=== PATIENT | male | born 1950 | race Caucasian/White ===

== ENCOUNTER → 2016-04-03 | Outpatient (CLI) | payer BC ==
[~2016-04-03] MED LIST: CALC1TAB25 PO
[2016-04-03 10:58] LABS: BASO % 1.3 %; BASO ABS # 0.07 K/uL (0-0.2); COMPLETE YES; EOS % 5.8 %; IG% 0.6 %; LYMPH % 33.7 %; LYMPH ABS # 1.75 K/uL (1.2-3.4); MEAN CELL VOLUME 89.6 fL (80-100); MEAN CORPUSCULAR HEMOGLOBIN 31.6 pg (25-34); MEAN CORPUSCULAR HGB CONC 35.3 g/dl (32-36); MEAN PLATELET VOLUME 8.8 fL (7.4-10.4); MONO % 9.6 %; PLATELET COUNT 263 K/uL (130-400); RED BLOOD COUNT 4.24 M/uL (4.7-6.1); WHITE BLOOD COUNT 5.19 K/uL (4.8-10.8)
[2016-04-03 11:26] LABS: ALT/SGPT 44 U/L (12-78); AST/SGOT 27 U/L (15-37); BLOOD UREA NITROGEN 14 mg/dl (7-18); BUN/CREATININE RATIO 18.9 (10-20); CALCIUM 8.9 mg/dl (8.5-10.1); CARBON DIOXIDE 27 mmol/L (21-32); CHLORIDE 107 mmol/L (98-107); CHOLESTEROL 159 mg/dl (0-200); CREATININE 0.76 mg/dl (0.60-1.40); GLUCOSE 86 mg/dl (70-99); POTASSIUM 3.9 mmol/L (3.5-5.1); SODIUM 143 mmol/L (136-145); TRIGLYCERIDES 66 mg/dl (0-150); VERY LOW DENSITY LIPOPROT CALC 13 mg/dl
[2016-04-03 11:27] LABS: CHOLESTEROL/HDL RATIO 3.1; HDL CHOLESTEROL 52 mg/dl; LDL CHOLESTEROL CALCULATED 94 mg/dl
== END | disposition home or self-care (01) ==
LOC: C.LAB1850 09:30
PROVIDERS: ATTEND Internal Medicine
DX: I10 Essential (primary) hypertension (principal); E78.00 Pure hypercholesterolemia, unspecified; D72.819 Decreased white blood cell count, unspecified

== ENCOUNTER → 2016-05-04 | Outpatient (CLI) | payer BC | END | disposition home or self-care (01) | LOC: C.PATHSPEC 14:07 | PROVIDERS: ATTEND Dermatology | DX: L57.0 Actinic keratosis (principal) ==

== ENCOUNTER → 2016-06-07 | Outpatient (CLI) | payer BC | END | disposition home or self-care (01) | LOC: C.PATHSPEC 13:30 | PROVIDERS: ATTEND Dermatology | DX: L82.0 Inflamed seborrheic keratosis (principal) ==

== ENCOUNTER → 2016-08-22 | Outpatient (CLI) | payer BC | END | disposition home or self-care (01) | LOC: C.PATHSPEC 16:32 | PROVIDERS: ATTEND Dermatology | DX: D23.9 Other benign neoplasm of skin, unspecified (principal); L82.1 Other seborrheic keratosis ==

== ENCOUNTER → 2016-08-31 | Outpatient (CLI) | payer BC ==
[2016-08-31 15:39] LABS: CALCIUM 9.4 mg/dl (8.5-10.1)
[2016-08-31 15:50] LABS: ALT/SGPT 29 U/L (12-78); AST/SGOT 20 U/L (15-37); BLOOD UREA NITROGEN 13 mg/dl (7-18); BUN/CREATININE RATIO 16.5 (10-20); CARBON DIOXIDE 28 mmol/L (21-32); CHLORIDE 105 mmol/L (98-107); CREATININE 0.78 mg/dl (0.60-1.40); GLUCOSE 83 mg/dl (70-99); POTASSIUM 3.6 mmol/L (3.5-5.1); SODIUM 141 mmol/L (136-145)
[2016-08-31 16:00] LABS: ALB/GLOB RATIO 1.1 (0.9-2); ALKALINE PHOSPHATASE 43 U/L (45-117)
== END | disposition home or self-care (01) ==
LOC: C.LAB1850 13:12
PROVIDERS: ATTEND Physician Assistant Medical
DX: I10 Essential (primary) hypertension (principal); Z12.5 Encounter for screening for malignant neoplasm of prostate

== ENCOUNTER → 2017-06-29 | Outpatient (CLI) | payer BC ==
[~2017-06-29] MED LIST changes: +ASPEC81 PO; +ASPI325T4 PO; +FERR1TAB23 PO; +HYDR25TA4 PO; +IRBE1TAB50 PO; +METO25TA3 PO; +PLV75 PO; +ROSU5TAB PO; +VTMD400 PO
[2017-06-29 12:23] LABS: BASO % 1.1 %; BASO ABS # 0.06 K/uL (0-0.2); EOS % 14.9 %; EOS ABS # 0.82 K/uL (0-0.5); HEMATOCRIT 37.1 % (42-52); IG# 0.01 K/uL (0.00-0.02); LYMPH % 25.9 %; LYMPH ABS # 1.42 K/uL (1.2-3.4); MEAN CELL VOLUME 90.9 fL (80-100); MEAN CORPUSCULAR HEMOGLOBIN 31.9 pg (25-34); MEAN PLATELET VOLUME 8.7 fL (7.4-10.4); MONO % 11.8 %; MONO ABS # 0.65 K/uL (0.11-0.59); NEUT % 46.1 %; NEUT ABS # 2.53 K/uL (1.4-6.5); PLATELET COUNT 296 K/uL (130-400); RED CELL DISTRIBUTION WIDTH CV 12.8 % (11.5-14.5); RED CELL DISTRIBUTION WIDTH SD 42.5 fL (36.4-46.3); WHITE BLOOD COUNT 5.49 K/uL (4.8-10.8)
[2017-06-29 12:35] LABS: ALBUMIN 3.8 gm/dl (3.4-5.0); ALT/SGPT 31 U/L (12-78); AST/SGOT 20 U/L (15-37); BLOOD UREA NITROGEN 18 mg/dl (7-18); CALCIUM 9.2 mg/dl (8.5-10.1); CARBON DIOXIDE 26 mmol/L (21-32); CREATININE 0.84 mg/dl (0.60-1.40); GLUCOSE 84 mg/dl (70-99); POTASSIUM 3.8 mmol/L (3.5-5.1); SODIUM 139 mmol/L (136-145)
[2017-06-29 12:38] LABS: ALKALINE PHOSPHATASE 42 U/L (45-117); CHOLESTEROL 259 mg/dl (0-200); LDL CHOLESTEROL CALCULATED 203 mg/dl; TOTAL PROTEIN 7.5 gm/dl (6.4-8.2)
== END | disposition home or self-care (01) ==
LOC: C.LABBFT 08:57
PROVIDERS: ATTEND Internal Medicine
DX: E78.00 Pure hypercholesterolemia, unspecified (principal); I10 Essential (primary) hypertension; R79.9 Abnormal finding of blood chemistry, unspecified; D64.9 Anemia, unspecified; D72.819 Decreased white blood cell count, unspecified

== ENCOUNTER → 2017-07-02 | Outpatient (CLI) | payer BC ==
[~2017-07-02] MED LIST changes: -ASPEC81 PO; +ASPI-320 PO
[2017-07-02 17:37] LABS: HEMATOCRIT 38.1 % (42-52); HEMOGLOBIN 13.6 g/dL (14.0-18.0); MEAN CELL VOLUME 90.1 fL (80-100); MEAN CORPUSCULAR HEMOGLOBIN 32.2 pg (25-34); MEAN CORPUSCULAR HGB CONC 35.7 g/dl (32-36); MEAN PLATELET VOLUME 8.5 fL (7.4-10.4); PLATELET COUNT 304 K/uL (130-400); RED CELL DISTRIBUTION WIDTH CV 12.6 % (11.5-14.5); RED CELL DISTRIBUTION WIDTH SD 40.6 fL (36.4-46.3)
[2017-07-02 17:48] LABS: INR 1.1 (0.9-1.1); PTT PATIENT 25.4 SECONDS (21.0-31.0)
[2017-07-02 18:22] LABS: BLOOD UREA NITROGEN 16 mg/dl (7-18); CALCIUM 9.3 mg/dl (8.5-10.1); CARBON DIOXIDE 28 mmol/L (21-32); CREATININE 0.78 mg/dl (0.60-1.40); GLUCOSE 96 mg/dl (70-99); POTASSIUM 3.1 mmol/L (3.5-5.1); SODIUM 138 mmol/L (136-145)
== END | disposition home or self-care (01) ==
LOC: C.LAB1850 16:08
PROVIDERS: ATTEND Internal Medicine Interventional Cardiology
DX: Z01.818 Encounter for other preprocedural examination (principal)

== ENCOUNTER 2017-07-05 07:31 | Inpatient (IN) | payer BC, OTHER ==
[~2017-07-05] VITALS: Ht 177.8 cm; Wt 75.5 kg
[2017-07-05] VITALS (24 sets, daily range): BP systolic 100–143; BP diastolic 66–90; PULSE 63–82; TEMP 36.3–36.6; O2SAT 88–99; Ht 177.8 cm; Wt 75.5 kg
[~2017-07-05 07:31] MED LIST changes: -ASPI-320 PO; -ASPI325T4 PO; -FERR1TAB23 PO; -HYDR25TA4 PO; -IRBE1TAB50 PO; -METO25TA3 PO; -PLV75 PO; -ROSU5TAB PO; -VTMD400 PO
[2017-07-05] MEDS ORDERED: HYDR25TA4 PO (08:05)
[2017-07-05] MEDS ORDERED: FERR1TAB23 PO (08:05)
[2017-07-05] MEDS ORDERED: METO25TA3 PO (08:05)
[2017-07-05] MEDS ORDERED: VTMD400 PO (08:05)
[2017-07-05] MEDS ORDERED: ASPI325T4 PO (08:05)
[2017-07-05] MEDS ORDERED: IRBE1TAB50 PO (08:05)
[2017-07-05] MEDS ORDERED: ROSU5TAB PO (08:05)
[2017-07-05] MEDS ORDERED: NiCARDipine HCL INJ 2.5 MG/ML 10 ML AMP ONE (08:35)
[2017-07-05] MEDS ORDERED: FENTANYL CITRATE INJ 50 MCG/1 ML 2 ML VIAL ONE ×2 (08:35→09:40)
[2017-07-05] MEDS ORDERED: HEPARIN SOD (PORCINE) 1000 UNIT/ML 10 ML VIAL ONE ×2 (08:35→10:08)
[2017-07-05] MEDS ORDERED: MIDAZOLAM HCL 1 MG/ML 2ML VIAL ONE ×2 (08:35→09:41)
[2017-07-05] MEDS ORDERED: NITROGLYCERIN/D5W 100MCG/ML 20ML SYR ONE (08:38)
--- NOTE | 2017-07-05 08:39 | Pre Sedation Assessment ---
Pre Sedation Assessment General Date of Sedation: Jul 05, 2017. Vital Signs Past 12 Hours Date Time Temp Pulse Resp B/P (MAP) Pulse Ox O2 Delivery O2 Flow Rate FiO2 07/05/17 07:54 36.6 80 16 143/90 (107) 99 Room Air Review Cardiovascular: regular rate, rhythm, no edema Lungs: chest non-tender, lungs clear Pre-Sedation Airway Assessment Smoking Status: Never Smoker Hx of Sleep Apnea: No Hx of difficult intubation: No Short Thick Neck: No Thyro-mental Distance: > 3 Finger Breadths Oral Cavity: WNL Mallampati Classification: Class III ASA Classification: Class III NPO Status Date of Last Intake of Fluids: Jul 04, 2017 Time of Last Intake of Fluids: 2199 Date of Last Intake of Solids: Jul 04, 2017 Time of Last Intake of Solids: 2199 Procedure Planning Contraindications for Sedation: None Current Medications Reviewed: Yes Notes The planned sedation has been discussed with the patient. Informed Consent was obtained. I have identified the patient, determined the appropriateness of sedation and have assessed the patient immediately prior to the procedure. All medicine(s) and interventions are by my order.
--- NOTE | 2017-07-05 08:40 | History & Physical Bridge Note ---
H&P Re-Evaluation Bridge Note: I have examined the patient, reviewed the History & Physical and in the interval since the performance of the History & Physical I have noted the following changes of clinical significance: No changes noted
[2017-07-05] MEDS ORDERED: LIDOCAINE HCL 1% 20 ML VIAL ONE (08:47)
[2017-07-05] MEDS ORDERED: ATROPINE SULFATE 0.1 MG/ML 10 ML SYR ONE (10:34)
[2017-07-05] MEDS ORDERED: METOPROLOL TARTRATE 1 MG/ML VIAL ONE (10:36)
[2017-07-05] MEDS ORDERED: EPTIFIBATIDE 0.75 MG/ML 75MG VIAL IV ONE (11:04)
[2017-07-05] MEDS ORDERED: EPTIFIBATIDE 2 MG/ML 10 ML VIAL IV ONE (11:04)
[2017-07-05] MEDS ORDERED: CLOPIDOGREL BISULFATE 300 MG TAB PO ONE (11:16)
--- NOTE | 2017-07-05 11:26 | Post Sedation Assessment ---
Post Sedation Assessment General Date of Sedation Jul 05, 2017. Vital Signs: Vital Signs Past 12 Hours Date Time Temp Pulse Resp B/P (MAP) Pulse Ox O2 Delivery O2 Flow Rate FiO2 07/05/17 11:09 77 16 118/74 (89) 99 Mask 2 07/05/17 07:54 36.6 80 16 143/90 (107) 99 Room Air Post Procedure Recovery Score Activity: (2) Moves 4 extremities * Respiration: (2) Deep breath/cough Circulation: (2) +/-20% PreAnes Value Consciousness: (2) Fully Awake Oxygen Saturation: (1) O2 needed for >90% Post Anesthesia Score: 9 Discharge Sedation Level of Care: Fast Track Phase II Post Sedation Plan On clinical assessment, the patient appears to have tolerated the sedation without complications. Patient is recovering as anticipated. Patient will continue to be monitored by nursing and may be discharged when sedation discharge criteria are met per below protocol. Upon Completions of procedure and additional 15 minutes continue every 5 minute vital signs and the P.A.R. score; then discharge to a Phase I or Fast Track to Phase II per the following guidelines: * Discharge Patient to appropriate Phase II area if PAR is 8 or greater or return to pre- procedure baseline. The post - procedure orders will be as directed. * If PAR score is less than 8 or not return to pre-procedure baseline then patient will follow Phase I monitoring till PAR is reached for Phase II. The Phase I may be done in procedure room or may call to secure a Phase I area. * If naloxone or flumazenil are used for reversal, hold in Phase I for an additional 60 -120 minutes before discharge to Phase II. Please call the Sedation Physician to re-evaluate and complete post-note for discharge to Phase II area. Do NOT discharge from procedure sedation or Phase 1 until post- sedation evaluation note is complete by procedure /sedation MD Sedation Discharge Instructions to be given to the patient at discharge to home.
[2017-07-05] MEDS ORDERED: ONDANSETRON INJ 2 MG/ML 2 ML VIAL IV PRN (11:30)
[2017-07-05] MEDS ORDERED: EPTIFIBATIDE BOLUS / DRIP IV ONE (11:30)
[2017-07-05] MEDS ORDERED: LORAZEPAM INJ 0.5 MG in SYRINGE 0.75 ML IV PRN (11:30)
--- NOTE | 2017-07-05 11:30 | [facility] Post Operative Brief Note ---
Immediate Operative Summary Operative Date Jul 05, 2017. Pre-Operative Diagnosis Typical Angina Post-Operative Diagnosis Coronary artery disease Procedure(s) Performed Cardiac catheterization PCI to LAD (2.75 x 33 Xience post-dilated with 3.5 NC balloon) Surgeon David Personal Property Assessor Surgeon(s) Glunt Estimated Blood Loss 15 Findings Consistent with Post-Op Diagnosis Specimens None Drains None Anesthesia Type IV Sedat Cons RN Only Complication(s) Bradycarida to Asystole requiring chest compressions, atropine x1, epinephrine. Quick ROSC with post epi-tachycardia and hypertension requiring metoprolol Post procedure Good angiographic result. Preserved LV function on echo, no pericardial effusion. Residual chest pain likely secondary to vessel stretching, pinched septal branch and chest compressions. Disposition Accompanied Pt To Recover: no Disposition: Surgical ICU
[2017-07-05] MEDS ORDERED: SODIUM CHLORIDE 0.9% 1000ML 750 ML IV SCH (12:33)
[2017-07-05] MEDS ORDERED: LORAZEPAM 2 MG/ML 1 ML VIAL IV PRN (12:45)
[2017-07-05] MEDS ORDERED: EPTIFIBATIDE INJ 75 MG PREMIXED IV SCH (12:45)
[2017-07-05] MEDS: ACETAMINOPHEN 325 MG TAB PO PRN ×2 (14:58→20:30)
[2017-07-05] MEDS ORDERED: Integrelin infusion --> STOP ORDER ONE (16:00)
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
--- NOTE | 2017-07-05 17:31 | ECHOCARDIOGRAM REPORT ---
*NOTICE TO RECEIVING DEMOCRAT AGENCY This information is strictly Confidential and protected under [place] law. [place] law prohibits you from making any further disclosure of this information unless further disclosure is expressly permitted by the written consent of the person to whom it pertains or is authorized by law. A general authorization for the release of medical or other information is not sufficient for this purpose. Hospital accepts no responsibility if the information is made available to any other person, INCLUDING THE PATIENT. Interpretation Summary * Name: MANUEL MUÑIZ Study Date: 07/05/2017 11:00 AM BP: 118/74 mmHg * Patient Location: [facility] HR: 77 * : 1950 (M/d/yyyy) Gender: Male Height: 70 in * Age: 66 yrs Ethnicity: CA Weight: 165 lb * Performed By: Evelyn Williamson RDCS * * Reason For Study: LIMITED FOR LV FUNCTION * BSA: 1.9 m2 * Patient done on cath table, limited for LV function, quick echo pictures, no definity at this time as per Dr. Hernandez * -- Conclusions -- * 1. Normal left ventricular size. Grossly low-normal systolic function. Estimated EF 50-55%.No visualized regional wall motion abnormalities. Cannot exclude wall motion abnormalities given image quality. No left ventricular hypertrophy. * 2. Limited 2D echo imaging as per request. * 3. Technically difficult study with poor to fair image quality of the apical views. * 4. No prior study available for comparison. Procedure Details * LIMITED FOR LV FUNCTION Left Ventricle * Normal left ventricular size. Grossly low-normal systolic function. Estimated EF 50-55%.No visualized regional wall motion abnormalities. Cannot exclude wall motion abnormalities given image quality. No left ventricular hypertrophy. Right Ventricle * The right ventricle is grossly normal size. * Grossly normal right ventricular systolic function. Atria * The left atrial size is normal. * Right atrial size is normal. Mitral Valve * The mitral valve is grossly normal. Tricuspid Valve * The tricuspid valve is not well visualized, but is grossly normal. Aortic Valve * The aortic valve is not well visualized. Pulmonic Valve * The pulmonic valve is not well visualized. Great Vessels * The aortic root is normal size. Pericardium/Pleural * There is no pericardial effusion. Great Vessels * IVC not visualized. MMode 2D Measurements and Calculations IVSd 1.0 cm IVSs 1.3 cm LVIDd 4.5 cm LVIDs 3.3 cm LVPWd 1.1 cm LVPWs 1.8 cm IVS/LVPW 0.92 FS 26.9 % EDV(Teich) 90.4 ml ESV(Teich) 42.8 ml EF(Teich) 52.6 % EDV(cubed) 88.5 ml ESV(cubed) 34.6 ml EF(cubed) 60.9 % % IVS thick 24.9 % % LVPW thick 56.1 % LV mass(C)d 170.3 grams LV mass(C)dI 88.6 grams/m\S\2 LV mass(C)s 183.6 grams LV mass(C)sI 95.5 grams/m\S\2 SV(Teich) 47.6 ml SI(Teich) 24.7 ml/m\S\2 SV(cubed) 53.9 ml SI(cubed) 28.0 ml/m\S\2 Ao root diam 3.3 cm Ao root area 8.7 cm\S\2
[2017-07-05] MEDS: OXYCODONE HCL IR 5 MG TAB (IMMEDIATE RELEASE) PO PRN ×2 (17:38→21:46)
[2017-07-05] MEDS: METOPROLOL TARTRATE 25 MG TAB PO SCH (20:30)
[2017-07-06] VITALS (20 sets, daily range): BP systolic 113–139; BP diastolic 66–79; PULSE 62–101; TEMP 36.5–37; O2SAT 94–99
[2017-07-06 05:03] LABS: BASO % 0.5 %; BASO ABS # 0.04 K/uL (0-0.2); EOS % 2.6 %; EOS ABS # 0.22 K/uL (0-0.5); HEMATOCRIT 33.6 % (42-52); IG# 0.02 K/uL (0.00-0.02); LYMPH ABS # 1.86 K/uL (1.2-3.4); MEAN CELL VOLUME 88.4 fL (80-100); MEAN CORPUSCULAR HEMOGLOBIN 31.6 pg (25-34); MEAN CORPUSCULAR HGB CONC 35.7 g/dl (32-36); MEAN PLATELET VOLUME 8.1 fL (7.4-10.4); MONO % 9.9 %; MONO ABS # 0.84 K/uL (0.11-0.59); NEUT % 64.8 %; NEUT ABS # 5.49 K/uL (1.4-6.5); PLATELET COUNT 232 K/uL (130-400); RED CELL DISTRIBUTION WIDTH CV 12.2 % (11.5-14.5); RED CELL DISTRIBUTION WIDTH SD 39.1 fL (36.4-46.3); WHITE BLOOD COUNT 8.47 K/uL (4.8-10.8)
[2017-07-06 05:21] LABS: CALCIUM 8.6 mg/dl (8.5-10.1); CREATININE 0.86 mg/dl (0.60-1.40)
[2017-07-06 05:39] LABS: CKMB 52.9 ng/ml (0.5-3.6)
[2017-07-06] MEDS: ACETAMINOPHEN 325 MG TAB PO PRN ×2 (06:14→19:36)
[2017-07-06] MEDS: ASPIRIN 81 MG ECTAB PO SCH (08:02)
[2017-07-06] MEDS: METOPROLOL TARTRATE 25 MG TAB PO SCH ×2 (08:02→20:50)
[2017-07-06] MEDS: ROSUVASTATIN CALCIUM 10 MG TAB PO SCH (08:03)
[2017-07-06] MEDS: CLOPIDOGREL BISULFATE 75 MG TAB PO SCH (08:03)
[2017-07-06] MEDS: IRBESARTAN 150 MG TAB PO SCH (08:04)
[2017-07-06] MEDS: FERROUS SULFATE 325 MG TAB PO SCH (08:04)
[2017-07-06] MEDS ORDERED: POTASSIUM CHLORIDE 20 MEQ TABCR PO ONE (09:15)
--- NOTE | 2017-07-06 10:07 | Cardiology Follow-Up ---
Subjective Subjective Date of Service: Jul 06, 2017. Pt evaluation today including: conversation w/ patient, physical exam, chart review, lab review, review of studies, review of inpatient medication list Additional Details: Feeling well. Minimal residual chest wall pain. No shortness of breath. No wrist pain. Telemetry reviewed -- no events. Review of Systems Constitutional: No fever Respiratory: No cough, No sputum Cardiac: + chest pain Abdomen: No pain, No nausea Heme: No abnormal bleeding/bruising Skin: No rash Objective Vital Signs Last Vital Signs Documentation Date Time Temp Pulse Resp B/P (MAP) Pulse Ox O2 Delivery O2 Flow Rate FiO2 07/06/17 08:01 36.9 78 14 128/70 (89) 98 07/06/17 08:00 Room Air 07/05/17 11:40 2.0 Physical Exam: General Appearance: no apparent distress ENT: normal ENT inspection Neck: supple, no JVD Respiratory/Chest: lungs clear, normal breath sounds, + pertinent finding ( chest wall tender) Cardiovascular: regular rate, rhythm, no edema Abdomen: normal bowel sounds, non tender Extremities: no pedal edema, + pertinent finding (right radial artery-no access site hematoma/ecchymosis; intact pulse) Neurologic/Psychiatric: alert, normal mood/affect Skin: warm/dry Assessment and Plan 1. Coronary artery disease -- post PCI with [place] to LAD 2. Intraprocedure PEA cardiac arrest -- no recurrent arrhythmias 3. Elevated troponin 4. Hypokalemia 5. Hypertension 6. Anemia Patient looks and feels well this morning. Hemodynamically and electrically stable. Chest wall pain better controlled. No recurrent anginal symptoms Troponin elevated but not unexpected. -- OK for transfer to telemetry today. -- Up walking around halls today. -- Continue aspirin/Plavix -- Continue current ARB/beta-kylie, statin Tentative plan for discharge tomorrow. Medications: Current Inpatient Medications Medications (Trade) Dose Ordered Sig/Alize Route Start Time Stop Time Status Last Admin Dose Admin Ondansetron HCl (Zofran Inj) 4 mg Q6H PRN IV 07/05/17 11:30 08/04/17 11:29 Aspirin (Ecotrin Tab) 81 mg QAM PO 07/06/17 09:00 08/05/17 08:59 07/06/17 08:02 81 MG Clopidogrel Bisulfate (plAVix TAB) 75 mg QAM PO 07/06/17 09:00 08/05/17 08:59 07/06/17 08:03 75 MG Metoprolol Tartrate (Lopressor Tab) 12.5 mg Q12 PO 07/05/17 21:00 08/04/17 20:59 07/06/17 08:02 12.5 MG Acetaminophen (Tylenol Tab) 650 mg Q4H PRN PO 07/05/17 11:30 08/04/17 11:29 07/06/17 06:14 650 MG Lorazepam 0.5 mg/ Syringe 1 ml @ 1 mls/min Q6H PRN IV 07/05/17 11:30 08/04/17 11:29 Rosuvastatin Calcium (Crestor Tab) 5 mg DAILY PO 07/06/17 09:00 08/05/17 08:59 07/06/17 08:03 5 MG Ferrous Sulfate (Feosol Tab) 325 mg DAILY PO 07/06/17 09:00 08/05/17 08:59 07/06/17 08:04 325 MG Irbesartan (Avapro Tab) 300 mg DAILY PO 07/06/17 09:00 08/05/17 08:59 07/06/17 08:04 300 MG Lorazepam (Ativan Inj) 0.5 mg Q6H PRN IV 07/05/17 12:45 08/04/17 12:44 Oxycodone HCl (Roxicodone Immediate Rel Tab) 5 mg Q4 PRN PO 07/05/17 17:15 07/19/17 17:14 07/05/17 21:46 5 MG Lab Results: 07/06/17 04:46 Red Blood Count 3.80, Mean Corpuscular Volume 88.4, Mean Corpuscular Hemoglobin 31.6, Mean Corpuscular Hemoglobin Concent 35.7, Mean Platelet Volume 8.1, Neutrophils (%) (Auto) 64.8, Lymphocytes (%) (Auto) 22.0, Monocytes (%) (Auto) 9.9, Eosinophils (%) (Auto) 2.6, Basophils (%) (Auto) 0.5, Neutrophils # (Auto) 5.49, Lymphocytes # (Auto) 1.86, Monocytes # (Auto) 0.84, Eosinophils # (Auto) 0.22, Basophils # (Auto) 0.04 07/06/17 04:46 Test 07/05/17 10:18 07/05/17 23:32 07/06/17 04:46 Kaolin Activated Coagulation Time 279 SECONDS (94-140) Bedside Glucose 107 mg/dl (70-99) White Blood Count 8.47 K/uL (4.8-10.8) Red Blood Count 3.80 M/uL (4.7-6.1) Hemoglobin 12.0 g/dL (14.0-18.0) Hematocrit 33.6 % (42-52) Mean Corpuscular Volume 88.4 fL (80-100) Mean Corpuscular Hemoglobin 31.6 pg (25-34) Mean Corpuscular Hemoglobin Concent 35.7 g/dl (32-36) Platelet Count 232 K/uL (130-400) Mean Platelet Volume 8.1 fL (7.4-10.4) Neutrophils (%) (Auto) 64.8 % Lymphocytes (%) (Auto) 22.0 % Monocytes (%) (Auto) 9.9 % Eosinophils (%) (Auto) 2.6 % Basophils (%) (Auto) 0.5 % Neutrophils # (Auto) 5.49 K/uL (1.4-6.5) Lymphocytes # (Auto) 1.86 K/uL (1.2-3.4) Monocytes # (Auto) 0.84 K/uL (0.11-0.59) Eosinophils # (Auto) 0.22 K/uL (0-0.5) Basophils # (Auto) 0.04 K/uL (0-0.2) RDW Standard Deviation 39.1 fL (36.4-46.3) RDW Coefficient of Variation 12.2 % (11.5-14.5) Immature Granulocyte % (Auto) 0.2 % Immature Granulocyte # (Auto) 0.02 K/uL (0.00-0.02) Anion Gap 7.0 mmol/L (3-11) Est Creatinine Clear Calc Drug Dose 86.1 ml/min Estimated GFR () 104.0 Estimated GFR (Non- 89.7 BUN/Creatinine Ratio 16.2 (10-20) Calcium Level 8.6 mg/dl (8.5-10.1) Phosphorus Level 3.0 mg/dl (2.5-4.9) Magnesium Level 2.0 mg/dl (1.8-2.4) Total Creatine Kinase 391 U/L (39-308) Creatine Kinase MB 52.9 ng/ml (0.5-3.6) Creatine Kinase MB Ratio 13.5 (0-3.0) Troponin I 9.620 ng/ml (0-0.045) Date/Time Source Procedure Growth Status 07/05/17 11:30 Nasal MRSA DNA Surveillance Screen - Final Specimen Negative for MRSA by DNA Probe Complete
--- NOTE | 2017-07-06 11:17 | Critical Care Progress Note ---
Critical Care Progress Note Date of Service Jul 06, 2017. Attending Dr. Rogel Subjective No events overnight, the patient continued to have sternal chest pain and likely pleuritic chest pain from chest compression, the patient did have coronary artery disease status post stent to the LAD yesterday, bradycardia to asystole with good recovery after CPR and 1 dose of atropine. The patient is currently asymptomatic other than the above, he is ambulatory and tolerating oral intake without any difficulties. No dizziness and he did not have any near syncopal episode. Objective Physical exam of 07/06/2017 showed S1-S2, regular rate and rhythm, distant and clear breath sounds, abdomen is benign, no edema. Neurologically he is intact. Labs are consistent with troponin positive, expected post cath. Assessment & Plan 1. Coronary artery disease status post CAROLINA to LAD. 2. Near syncopal episode related to above. 3. Brief cardiac arrest secondary to bradycardia, recovered with quick CPR and atropine. 4. Hypercholesterolemia. 5. Chest pain secondary to chest compression. Plan: 1. Cardiac management per Dr. Hernandez. Appreciate his input. 2. Continue with Tylenol. 3. The patient required 2 doses of oxycodone and he is not in agonal pain at this point. 4. Tolerated physical therapy and walking around the unit. 5. Oral intake. 6. Disposition plan per Dr. Hernandez. Thank you. Data Medications: Current Inpatient Medications Medications (Trade) Dose Ordered Sig/Alize Route Start Time Stop Time Status Last Admin Dose Admin Ondansetron HCl (Zofran Inj) 4 mg Q6H PRN IV 07/05/17 11:30 08/04/17 11:29 Aspirin (Ecotrin Tab) 81 mg QAM PO 07/06/17 09:00 08/05/17 08:59 07/06/17 08:02 81 MG Clopidogrel Bisulfate (plAVix TAB) 75 mg QAM PO 07/06/17 09:00 08/05/17 08:59 07/06/17 08:03 75 MG Metoprolol Tartrate (Lopressor Tab) 12.5 mg Q12 PO 07/05/17 21:00 08/04/17 20:59 07/06/17 08:02 12.5 MG Acetaminophen (Tylenol Tab) 650 mg Q4H PRN PO 07/05/17 11:30 08/04/17 11:29 07/06/17 06:14 650 MG Lorazepam 0.5 mg/ Syringe 1 ml @ 1 mls/min Q6H PRN IV 07/05/17 11:30 08/04/17 11:29 Rosuvastatin Calcium (Crestor Tab) 5 mg DAILY PO 07/06/17 09:00 08/05/17 08:59 07/06/17 08:03 5 MG Ferrous Sulfate (Feosol Tab) 325 mg DAILY PO 07/06/17 09:00 08/05/17 08:59 07/06/17 08:04 325 MG Irbesartan (Avapro Tab) 300 mg DAILY PO 07/06/17 09:00 08/05/17 08:59 07/06/17 08:04 300 MG Lorazepam (Ativan Inj) 0.5 mg Q6H PRN IV 07/05/17 12:45 08/04/17 12:44 Oxycodone HCl (Roxicodone Immediate Rel Tab) 5 mg Q4 PRN PO 07/05/17 17:15 07/19/17 17:14 07/05/17 21:46 5 MG Vital Signs: Date Time Temp Pulse Resp B/P (MAP) Pulse Ox O2 Delivery O2 Flow Rate FiO2 07/06/17 08:01 36.9 78 14 128/70 (89) 98 07/06/17 08:00 73 17 96 07/06/17 08:00 Room Air 07/06/17 07:01 62 16 120/73 (89) 96 07/06/17 07:00 62 21 94 07/06/17 06:00 36.8 64 20 125/71 (89) 96 Room Air 07/06/17 04:03 36.8 76 18 127/71 (89) 95 Room Air 07/06/17 04:03 Room Air 07/06/17 02:03 36.8 65 16 113/71 (85) 94 Room Air 07/06/17 00:01 36.8 63 18 115/66 (82) 95 Room Air 07/06/17 00:01 Room Air 07/05/17 22:00 65 20 126/78 (94) 96 Room Air 07/05/17 20:00 36.6 67 18 122/66 (84) 97 Room Air 07/05/17 20:00 Room Air 07/05/17 18:00 69 20 121/74 (90) 97 Room Air 07/05/17 17:21 68 20 134/83 (100) 98 Room Air 07/05/17 16:21 63 18 119/71 (87) 96 Room Air 07/05/17 16:00 36.4 63 18 119/71 (87) 97 Room Air 07/05/17 16:00 Room Air 07/05/17 16:00 36.4 63 18 119/71 (87) 96 Room Air 07/05/17 15:21 36.4 63 18 113/67 (82) 96 Room Air 07/05/17 14:30 64 24 07/05/17 14:16 66 20 112/66 (81) 95 07/05/17 14:01 63 20 122/71 (88) 96 07/05/17 14:00 65 20 95 07/05/17 13:46 69 24 118/77 (91) 96 07/05/17 13:31 68 22 114/78 (90) 99 07/05/17 13:30 68 24 07/05/17 13:30 Room Air 07/05/17 13:25 71 20 114/78 (90) 99 Room Air 07/05/17 12:55 72 21 111/78 (89) 98 Room Air 07/05/17 12:25 81 25 120/85 (97) 97 Room Air 07/05/17 12:10 82 17 101/74 (83) 97 Room Air 07/05/17 12:00 Room Air 07/05/17 12:00 36.3 74 18 100/68 97 Room Air 07/05/17 11:55 74 18 100/68 (79) 97 Room Air 07/05/17 11:40 76 16 114/75 (88) 97 Nasal Cannula 2.0 07/05/17 11:25 36.3 74 15 107/73 (84) 99 Nasal Cannula 2.0 07/05/17 11:24 74 16 125/77 (93) 99 Mask 2 Laboratory Results: Last 24 Hours Test 07/05/17 11:56 07/05/17 15:43 07/05/17 23:32 07/06/17 04:46 Bedside Glucose 94 mg/dl 85 mg/dl 107 mg/dl White Blood Count 8.47 K/uL Red Blood Count 3.80 M/uL Hemoglobin 12.0 g/dL Hematocrit 33.6 % Mean Corpuscular Volume 88.4 fL Mean Corpuscular Hemoglobin 31.6 pg Mean Corpuscular Hemoglobin Concent 35.7 g/dl Platelet Count 232 K/uL Mean Platelet Volume 8.1 fL Neutrophils (%) (Auto) 64.8 % Lymphocytes (%) (Auto) 22.0 % Monocytes (%) (Auto) 9.9 % Eosinophils (%) (Auto) 2.6 % Basophils (%) (Auto) 0.5 % Neutrophils # (Auto) 5.49 K/uL Lymphocytes # (Auto) 1.86 K/uL Monocytes # (Auto) 0.84 K/uL Eosinophils # (Auto) 0.22 K/uL Basophils # (Auto) 0.04 K/uL RDW Standard Deviation 39.1 fL RDW Coefficient of Variation 12.2 % Immature Granulocyte % (Auto) 0.2 % Immature Granulocyte # (Auto) 0.02 K/uL Sodium Level 135 mmol/L Potassium Level 3.0 mmol/L Chloride Level 100 mmol/L Carbon Dioxide Level 28 mmol/L Anion Gap 7.0 mmol/L Blood Urea Nitrogen 14 mg/dl Creatinine 0.86 mg/dl Est Creatinine Clear Calc Drug Dose 86.1 ml/min Estimated GFR () 104.0 Estimated GFR (Non- 89.7 BUN/Creatinine Ratio 16.2 Random Glucose 112 mg/dl Calcium Level 8.6 mg/dl Phosphorus Level 3.0 mg/dl Magnesium Level 2.0 mg/dl Total Creatine Kinase 391 U/L Creatine Kinase MB 52.9 ng/ml Creatine Kinase MB Ratio 13.5 Troponin I 9.620 ng/ml
[2017-07-07 00:37] VITALS: BP 125/72; PULSE 67; TEMP 36.9; O2SAT 97
[2017-07-07 04:00] VITALS: BP 117/60; PULSE 77; TEMP 37.2; O2SAT 97
--- NOTE | 2017-07-07 05:32 | Progress Note ---
Post ICU Progress Note Date & Time Jul 07, 2017 at 05:29 Vital Signs Vital Signs Past 12 Hours Date Time Temp Pulse Resp B/P (MAP) Pulse Ox O2 Delivery O2 Flow Rate FiO2 07/07/17 04:00 Room Air 07/07/17 04:00 37.2 77 16 117/60 (79) 97 Room Air 07/07/17 00:37 36.9 67 16 125/72 (89) 97 Room Air 07/06/17 23:59 Room Air 07/06/17 20:00 99 Room Air 07/06/17 19:43 36.5 101 18 139/79 (99) 99 Room Air 07/06/17 17:30 37.0 73 16 132/73 (92) 98 Nasal Cannula Notes Mental Status: see Notes Nausea / Vomiting: adequately controlled Pain: adequately controlled Airway Patency, RR, SpO2: stable & adequate BP & HR: stable & adequate Patient is a 66-year-old male who underwent routine cardiac catheterization for decrease in exercise tolerance and positive stress test. During procedure, the patient was found to have stenosis of the LAD requiring intervention. During procedure, the patient did have bradycardia resulting in asystolic arrest requiring brief compressions with a one-time dose of atropine which did resolve his dysrhythmia. He received a CAROLINA to the LAD and was subsequently transferred to the ICU for close monitoring. Throughout his stay, the patient had no ectopy or issues with blood pressure otherwise. He did have complaints of central chest pain at the location of compressions. This did seem to improve with oral pain medication alone. Patient is sleeping and resting comfortably at the time of evaluation. I did not choose to wait the patient at this time. Consider outpatient follow up in 1 to 2 weeks with: Cardiology, PCP Repeat imaging needed: None at this time. Follow up cultures: N/A Reviewed progress notes, labs, and inpatient medication list Continue current management Additional recommendations: None at this time. Thank you for allowing us to participate in the care of this patient. At this time, Critical Care services will sign off on this case. Please feel free to reconsult if we can be of any further assistance.
[2017-07-07 06:25] LABS: BASO ABS # 0.08 K/uL (0-0.2); EOS % 6.4 %; EOS ABS # 0.52 K/uL (0-0.5); HEMATOCRIT 34.1 % (42-52); IG# 0.02 K/uL (0.00-0.02); LYMPH % 22.4 %; LYMPH ABS # 1.83 K/uL (1.2-3.4); MEAN CELL VOLUME 90.5 fL (80-100); MEAN CORPUSCULAR HEMOGLOBIN 31.8 pg (25-34); MEAN CORPUSCULAR HGB CONC 35.2 g/dl (32-36); MEAN PLATELET VOLUME 8.2 fL (7.4-10.4); MONO ABS # 0.98 K/uL (0.11-0.59); NEUT ABS # 4.74 K/uL (1.4-6.5); PLATELET COUNT 227 K/uL (130-400); RED CELL DISTRIBUTION WIDTH CV 12.6 % (11.5-14.5); RED CELL DISTRIBUTION WIDTH SD 41.3 fL (36.4-46.3); WHITE BLOOD COUNT 8.17 K/uL (4.8-10.8)
[2017-07-07 07:06] LABS: CALCIUM 8.7 mg/dl (8.5-10.1); CREATININE 0.84 mg/dl (0.60-1.40); POTASSIUM 4.1 mmol/L (3.5-5.1)
[2017-07-07] MEDS: FERROUS SULFATE 325 MG TAB PO SCH (07:33)
[2017-07-07] MEDS: ACETAMINOPHEN 325 MG TAB PO PRN (07:33)
[2017-07-07] MEDS: IRBESARTAN 150 MG TAB PO SCH (07:33)
[2017-07-07] MEDS: METOPROLOL TARTRATE 25 MG TAB PO SCH (07:33)
[2017-07-07] MEDS: CLOPIDOGREL BISULFATE 75 MG TAB PO SCH (07:34)
[2017-07-07] MEDS: ASPIRIN 81 MG ECTAB PO SCH (07:34)
[2017-07-07] MEDS: ROSUVASTATIN CALCIUM 10 MG TAB PO SCH (07:34)
[2017-07-07 07:53] VITALS: BP 131/73; PULSE 73; TEMP 37; O2SAT 97
[2017-07-07] MEDS ORDERED: PLV75 PO (10:29)
[2017-07-07] MEDS ORDERED: ASPI-320 PO (10:29)
--- NOTE | 2017-07-07 10:32 | Discharge Instructions ---
Discharge Instructions Procedure Procedure Date: Jul 07, 2017. Reason for Visit: Chest Pain *Dr Hernandez To Do*. Discharge Discharge Date: Jul 07, 2017. Discharge Diagnosis: Coronary artery disease post stenting Last Recorded Wt (Kilograms): 75.500 Instructions Activity Recommendations: limitations as noted below Recommended Home Diet: low sodium, low cholesterol Allergies: Coded Allergies: Atorvastatin (Verified Allergy, Mild, Body Aches, No Energy, 07/05/17) Simvastatin (Verified Allergy, Mild, Body Aches, No Energy, 07/05/17) Follow Up Additional Instructions: ACTIVITY RECOMMENDATIONS: It is common to feel weak and fatigue for a few days. * Do not drive or operate any motorized equipment for the next 2 days. * Limit stair usage (2 or 3 trips a day only) for the next three days. * Do not lift anything heavier than 10 pounds for the next three days. * Do not engage in vigorous exercise or any sports for the next five days. Excess manipulation of the wrist should be avoided for the next 24-48 hours. * No lifting over 2 pounds (approximately a 1/2 gallon of milk) with the utilized arm for 24 hours. * No strenuous activity such as bowling or tennis for 3 days. * Keep the site of the procedure covered with a bandage for 24 hours. *You may shower the day after the procedure. Do not take a tub bath or submerge the puncture site in water for the next 3 days. SPECIAL CARE INSTRUCTIONS: The site may be slightly bruised and sore following your procedure. Should any of the following occur, contact the Dr. who performed your procedure. 1. Redness/inflammation, swelling, chills, or fever, or colored drainage at procedure site within 3-7 days after your procedure. 2. Coldness, discoloration, ongoing numbness, severe pain, or swelling. Expect mild tingling of hand and tenderness at the puncture site for up to three days. If this persists beyond three days, or other symptoms develop, notify the Dr. who performed your procedure. BLEEDING: If the procedure site on your wrist begins to bleed, do not panic 1. Place 1 or 2 fingers firmly just slightly above the insertion site to stop the bleeding. You may be able to feel your pulse as you hold pressure. 2. Lift your finger after 5 minutes to see if the bleeding has stopped. 3. Once the bleeding has stopped, gently wipe the wrist area clean with a bandage. * If the bleeding from your wrist does not stop after 10 minutes, or if there is a large amount of bleeding or spurting, call 911 (do not drive yourself to the hospital). SKIN IRRITATION: * You may experience some redness and/or swelling in the area where radiation was administered. If any skin irritation occurs, please contact your family physician. FOLLOW UP VISIT: Keep any scheduled doctor appointments. Follow-up with: 2-[address] David Sanders Recommendations: Call your doctor if: * Temperature above 101 degrees * Pain not relieved by pain medicine ordered * There is increased drainage or redness from any incision * You have any unanswered questions or concerns. Your Doctors Instructions noted above were prepared by provider Frankie Hernandez. Patient Signature Section: Patient Instructions Signature Page Thanh Miller Patient (or Guardian) Signature/Date: I have read and understand the instructions given to me by my caregivers. Caregiver/RN/Doctor Signature/Date: The above-named patient and/or guardian has received patient instructions on this date. + Original Patient Signature Page (only) stays with chart. Please make copy for patient.
[2017-07-07 10:41] VITALS: BP 131/73; PULSE 73; TEMP 37; O2SAT 97
--- NOTE | 2017-07-07 15:33 | Cardiac Catheterization ---
Procedure Note Procedure Date Jul 05, 2017. Pre-Procedure Diagnosis Angina AUC Score 7 Post-Procedure Diagnosis Severe CAD, Successful PCI, Normal Intracardiac Pressures Procedure(s) Performed Coronary Angiography, Left Heart Cath, Drug Eluting Stent, IVUS Final Inspector And Tester David [employer] Area Network Systems Administrator(s) Glunt Estimated Blood Loss 15 Medication(s) Atropine, Clopidogrel, Epinephrine, Fentanyl, Heparin, Integrilin, Metoprolol, Versed, Lidocaine 1% Summary of Findings Indication: Accelerating typical angina Access: 6Fr right radial artery Catheters: [place], JR4; EBU 3.5 Findings: LM - Angiographically normal LAD - Moderate caliber vessel, 80-90% diffuse calcified disease from proximal to mid segments; distal vessel tortuous with diffuse mild disease to apex. - Moderate caliber 2nd diagonal with 30% ostial stenosis. Circumflex - Large, dominant, luminal irregularities RCA - Small, non-dominant, angiographically normal LVEDP - 11 -- PCI -- Antithrombotic therapy: Heparin, clopidogrel, Integrilin Procedure: Left main cannulated with EBU 3 5 guide BMW wire passed across lesion into distal vessel Proximal to mid LAD lesion predilated with 2.5 compliant balloon IVUS catheter used to assess extent LAD disease distal to takeoff of diagonal and for vessel sizing--found to have severe disease almost from LAD ostium to be on 2nd diagonal with moderate calcification Whisper wire placed into moderate caliber 2nd diagonal Ostium of 2nd diagonal dilated with 2.0 balloon Dilated LAD lesion stented with 2.75 x 33 millimeters Xience drug-eluting stent Attempted to dilate diagonal ostium/stent struts with 2.0 and 1.5 balloons but unable to pass balloon into vessel Stent post-dilated with 3.5 noncompliant balloon. With balloon inflation noted to have compromise of moderate caliber septal branch. After receiving IC nicardipine, Versed/fentanyl patient became increasingly bradycardic and eventually became asystolic Chest compressions started, received IV atropine and epinephrine with quick ROSC Patient hypertensive, tachycardic following epinephrine with diffuse ST changes and chest pain. Received IV metoprolol x2 Repeat angiography revealed some haziness in the LAD and started on Integrilin IVUS assessment of LAD, circumflex, left main revealed no apparent coronary complications Bedside echocardiogram showed preserved LV function with no regional wall motion abnormalities and no pericardial effusion With additional IC vasodilators noted to have AMARILYS 3 flow, chest pain/ST changes resolved and final coronary angiography revealed no apparent complications Arterial Closure: TR band Summary: 1. Severe single-vessel coronary artery disease - 80-90% diffuse proximal to mid LAD disease 2. Normal intracardiac filling pressure 3. Successful PCI of proximal to mid LAD with single drug-eluting stent (2.75 x 33 millimeter science; post dilated with 3.5 NC) --intraprocedural course complicated by bradycardia/asystole responsive to atropine, epinephrine Recommendations: To ICU for continued monitoring Continue Integrilin for 6 hours Loaded with 600 milligrams clopidogrel in cytogenetics laboratory manager Continue dual-antiplatelet therapy with aspirin/clopidogrel for 1 year Continue statin,and ASCVD risk factor modification Consult cardiac Rehab Hemodynamics Rest Ao: 122/67/92 Final Ao: 92/64/77 LV: 127/11 Recommendations PCI without planned CABG Specimens None Radiation Exposure (mGy) 3453 Contrast (mls) 245 visi Fluids (cc crystalloids) 250 Drains None Anesthesia Moderate Procedural Complication(s) Intraprocedural bradycardia, asystole Disposition ICU ACC Data Cardiac Status Clinical evaluation leading to the procedure CAD Presntation: Unstable angina Anginal Classification: CCS III Heart Failure: No, NYHA Class: CCS I Cardiogenic Shock w/in 24Hrs: No Cardiac Arrest w/in 24Hrs: No Imaging studies past 6 months: Yes Stress studies past 6 months: No Standard Exercise Stress Test: No Stress Echocardiogram: No Stress Testing w/SPECT MPI: No Cardiac CTA: No Closure Device Percutaneous Entry Location: Radial Closure Device: Radial Band Recommendations: PCI without planned CABG PCI Indication: Unstable Angina Lesion Segment Name: Proximal LAD Culprit Artery: Yes Stenosis Prior to Rx (%): 90 Chronic Total Occlusion: No IVUS: Yes FFR: No Pre-Procedure AMARILYS Flow: 3 Previously Treated Lesion: No Lesion Complexity: High/C Lesion Length (mm): 25 Thrombus Present: No Bifurcation Lesion: Yes Guidewire Across Lesion: Yes Guidewire: Stenosis Post-Procedure (%): 0 Post-Procedure AMARILYS Flow: 3 Device(s) Deployed: Yes Intraprocedure Events Significant Dissection: No Perforation: No
--- NOTE | 2017-07-07 15:43 | Discharge Summary ---
Discharge Summary Date of Service Jul 07, 2017. Discharge Summary Admission Date: Jul 05, 2017 at 10:43 Discharge Date: Jul 07, 2017 Discharge Disposition: Home Principal Diagnosis: Coronary artery disease post PCI Problems/Secondary Diagnoses: Intraprocedural asystole/cardiac arrest, hypertension, dyslipidemia Immunizations: Have You Had Influenza Vaccine: Yes History of Tetanus Vaccine?: Yes History of Pneumococcal: No History of Hepatitis B Vaccine: No Procedures: 1. Cardiac catheterization 2. PCI with single drug-eluting stent to proximal to mid LAD Consultations: Braille Coder, Dr. Rogel Medication Reconciliation New Medications: Aspirin (Aspirin EC Low Dose) 81 Mg Ectab 81 MG PO QAM for 30 Days, #30 TAB 9 Refills Clopidogrel Bisulfate (Clopidogrel) 75 Mg Tab 75 MG PO QAM for 90 Days, #90 TAB 3 Refills Continued Medications: Calcium W/ Magnesium (Calcium Magnesium 750) 1 Tab Tab 1 TAB PO QAM Cholecalciferol (Vitamin D3) 400 Inter.unit Tab 1 TAB PO DAILY Ferrous Sulfate (Iron) 325 Mg Tab 1 TAB PO DAILY Irbesartan (Irbesartan) 300 Mg Tab 1 TAB PO DAILY for 30 Days, #30 TAB 5 Refills Metoprolol Succ (Toprol Xl) (Toprol-Xl) 25 Mg Tabcr 25 MG PO DAILY, #30 TAB Rosuvastatin Calcium (Crestor) 5 Mg Tab 1 TAB PO DAILY for 30 Days, #30 TAB 5 Refills Discontinued Medications: Aspirin (Aspirin) 325 Mg Tab 650 MG PO BID, TAB Hydrochlorothiazide (Hctz) 25 Mg Tab 1 TAB PO DAILY for 30 Days, #30 TAB 5 Refills Discharge Exam General: Comfortable, no acute distress Eyes: Sclerae anicteric, extraocular movements intact HENT: Oropharynx clear mucous membranes moist Neck: Normal carotid upstrokes, no bruits. No JVD. Lungs: Clear to auscultation bilaterally, no rhonchi or wheezes Cardiac: Regular rate and rhythm, no murmurs, rubs or gallops. Vascular: 2+ radial, DP and PT pulses. No varicosities. Right radial artery with no ecchymosis, hematoma, pulse intact Abdomen: Soft, nontender, nondistended, positive bowel sounds. Extremities: Well perfused, no peripheral edema Skin: No rashes or lesions. Neuro: Nonfocal Psych: Alert orient x3, normal affect and mood Hospital Course 66-year-old man with history of hypertension, dyslipidemia who was seen as an outpatient earlier this week in the setting new exertional substernal chest pain. Echocardiogram showed preserved LV function. Decision made to proceed directly with cardiac catheterization based on risk factors and typical nature of symptoms. Patient underwent diagnostic coronary angiography via right radial artery. He was found to have a severe 80-90 percent proximal to mid, calcified LAD lesion which was thought to be the likely culprit for his symptoms. PCI undertaken and had a 2.75 x 33 millimeter Xience drug-eluting stent placed to his LAD. Stent was post dilated a 3.5 noncompliant balloon. Following stent dilation patient became increasingly bradycardic eventually asystolic requiring chest compressions, atropine and epinephrine. Had with quick ROSC and not have to be intubated. Repeat coronary angiography, IVUS S min showed no apparent coronary artery complications other than loss of a moderate septal branch. Postprocedure patient was chest pain-free aside from chest wall tenderness. He was admitted to the ICU for monitoring. Repeat echocardiogram showed no change in LV function. He had no significant arrhythmias. He had no recurrent anginal symptoms. On hospital day 3 patient was feeling well, walking laps around the hospital without any symptoms and was thought safe for discharge. Will need to remain on dual antiplatelet therapy for at least 6 months. Will follow up with Cardiology in 2-3 weeks. Total Time Spent: Less than 30 minutes This includes examination of the patient, discharge planning, medication reconciliation, and communication with other providers. Discharge Instructions Please refer to the electronic Patient Visit Report (Discharge Instructions) for additional information.
[2017-07-24] MEDS ORDERED: AMLO-110 PO (16:07)
[2017-07-24] MEDS ORDERED: NTRGSL/4 SL (16:07)
== END 2017-07-07 11:28 | disposition home or self-care (01) | DRG 247 ==
LOC: C.CATH 07:31 → C.MSICU 10:43 → EDBEDREQSVC 10:47 → ENRESERV 10:48 → C.2E 07-06 17:29
PROVIDERS: ADMIT Internal Medicine Interventional Cardiology; ATTEND Internal Medicine Interventional Cardiology
PROC: 0270346 Dilation of Coronary Artery, One Artery, Bifurcation, with Drug-eluting Intraluminal Device, Percutaneous Approach (ICD-10-PCS; principal; 2017-07-05 08:00)
PROC: B241ZZ3 Ultrasonography of Multiple Coronary Arteries, Intravascular (ICD-10-PCS; principal; 2017-07-05 08:00)
PROC: 4A023N7 Measurement of Cardiac Sampling and Pressure, Left Heart, Percutaneous Approach (ICD-10-PCS; principal; 2017-07-05 08:00)
PROC: B211YZZ Fluoroscopy of Multiple Coronary Arteries using Other Contrast (ICD-10-PCS; principal; 2017-07-05 08:00)
DX: I25.110 Atherosclerotic heart disease of native coronary artery with unstable angina pectoris (principal); I97.710 Intraoperative cardiac arrest during cardiac surgery; Y84.0 Cardiac catheterization as the cause of abnormal reaction of the patient, or of later complication, without mention of misadventure at the time of the procedure; Y92.234 Operating room of hospital as the place of occurrence of the external cause; I25.84 Coronary atherosclerosis due to calcified coronary lesion; R74.8 Abnormal levels of other serum enzymes; E87.6 Hypokalemia; D64.9 Anemia, unspecified; R55 Syncope and collapse; R00.1 Bradycardia, unspecified; R07.81 Pleurodynia; E78.00 Pure hypercholesterolemia, unspecified; E78.5 Hyperlipidemia, unspecified; I10 Essential (primary) hypertension; Z96.659 Presence of unspecified artificial knee joint; Z87.891 Personal history of nicotine dependence; Z82.49 Family history of ischemic heart disease and other diseases of the circulatory system; Z79.82 Long term (current) use of aspirin; Z79.899 Other long term (current) drug therapy; Z88.8 Allergy status to other drugs, medicaments and biological substances

== ENCOUNTER → 2017-07-30 | Outpatient (CLI) | payer BC ==
[~2017-07-30] MED LIST changes: +AMLO-110 PO; +ASPI-320 PO; +FERR1TAB23 PO; +IRBE1TAB50 PO; +METO25TA3 PO; +NTRGSL/4 SL; +PLV75 PO; +ROSU5TAB PO; +VTMD400 PO
== END | disposition home or self-care (01) ==
LOC: C.RDSM 13:53
PROVIDERS: ATTEND Physical Medicine & Rehabilitation Sports Medicine
DX: M79.642 Pain in left hand (principal)